=== PATIENT | male | born 1950 | race Caucasian/White ===

== ENCOUNTER → 2016-09-18 | Outpatient (CLI) | payer OTHER ==
[2016-09-18 16:49] LABS: HEMATOCRIT 42.3 % (42-52); MEAN CELL VOLUME 92.2 fL (80-100); MEAN CORPUSCULAR HGB CONC 34.8 g/dl (32-36); MEAN PLATELET VOLUME 9.9 fL (7.4-10.4); PLATELET COUNT 224 K/uL (130-400); RED BLOOD COUNT 4.59 M/uL (4.7-6.1); WHITE BLOOD COUNT 6.76 K/uL (4.8-10.8)
[2016-09-18 16:58] LABS: ALT/SGPT 49 U/L (12-78); AST/SGOT 31 U/L (15-37); BLOOD UREA NITROGEN 14 mg/dl (7-18); BUN/CREATININE RATIO 12.6 (10-20); CALCIUM 8.5 mg/dl (8.5-10.1); CARBON DIOXIDE 26 mmol/L (21-32); CHLORIDE 106 mmol/L (98-107); GLUCOSE 87 mg/dl (70-99); SODIUM 142 mmol/L (136-145)
[2016-09-18 17:03] LABS: ALB/GLOB RATIO 1.3 (0.9-2); ALKALINE PHOSPHATASE 116 U/L (45-117); CHOLESTEROL 190 mg/dl (0-200); CHOLESTEROL/HDL RATIO 2.7; HDL CHOLESTEROL 70 mg/dl; LDL CHOLESTEROL CALCULATED 93 mg/dl; PROSTATE SPECIFIC ANTIGEN 0.211 ng/ml (0.000-4.000); TRIGLYCERIDES 133 mg/dl (0-150); VERY LOW DENSITY LIPOPROT CALC 27 mg/dl
== END | disposition home or self-care (01) ==
LOC: C.LABBFT 16:47
PROVIDERS: ATTEND Internal Medicine
DX: Z13.6 Encounter for screening for cardiovascular disorders (principal); Z12.5 Encounter for screening for malignant neoplasm of prostate